=== PATIENT | female | born 1950 | race Caucasian/White ===

== ENCOUNTER 2020-12-07 09:23 | Emergency (ER) | payer MEDICARE ==
[~2020-12-07] VITALS: Ht 162.6 cm; Wt 61.0 kg
[2020-12-07 09:28] VITALS: BP 192/88
--- NOTE | 2020-12-07 10:41 | ED.ADGEN ---
Past Medical History Past Surgical History: Hysterectomy Additional Past Surgical Histo: "BLADDER MESH" Smoking Status: Never Smoker Alcohol Use: None Drug Use: Marijuana General Adult EDM: Chief Complaint: ABSCESS HPI: HPI: Patient is a 70 year old female, accompanied by her , who presents to the emergency department with concerns of a hole in her perineum for the last 2 weeks. She denies any bleeding or discharge from the site. Patient reports when the symptoms began she was suffering from some constipation and having to strain with bowel movements. She denies any blood in her stool or her urine. She denies any abnormal vaginal discharge, vaginal bleeding, or vaginal odor. Patient denies any dysuria, fever, abdominal pain, nausea, vomiting, or diarrhea. Patient states that her visualized the hole and knows exactly where it is, she currently denies any pain. Review of Systems: Review of Systems: Complete ROS is negative unless otherwise noted in HPI. Allergies: Allergies: Allergies Coded Allergies Type Severity Reaction Last Updated Verified No Known Drug Allergies 12/07/20 No Physical Exam: PE: See Above Constitutional: Well developed, well nourished, no acute distress, non-toxic appearance. [] HENT: Normocephalic, atraumatic, bilateral external ears normal, nose normal. [] Eyes: PERRLA, EOMI, conjunctiva normal, no discharge. [] Neck: Normal range of motion, no stridor. [] Cardiovascular:Heart rate regular rhythm Lungs & Thorax: Respirations even and unlabored, no retractions, no respiratory distress Rectal Exam: Normal tone, No mass, Positive control, visible external hemorrhoid at 12:00 that is not thrombosed, no palpable internal hemorrhoid Stool: Brown Guaiac: Deferred Skin: Warm, dry, no erythema, no rash. [] Extremities: No cyanosis, ROM intact, no edema. [] Neurologic: Alert and oriented X 3, no focal deficits noted. [] Psychologic: Affect normal, judgement normal, mood normal. [] Current Patient Data: Vital Signs: Vital Signs Date Time Temp Pulse Resp B/P (MAP) Pulse Ox O2 Delivery O2 Flow Rate FiO2 12/07/20 09:28 97.7 102 12 192/88 97 Room Air 97.7 EKG: EKG: [] Heart Score: C/O Chest Pain: No Radiology/Procedures: Radiology/Procedures: [] Course & Med Decision Making: Course & Med Decision Making Pertinent Labs and Imaging studies reviewed. (See chart for details) [] Dragon Disclaimer: Dragon Disclaimer: This electronic medical record was generated, in whole or in part, using a voice recognition dictation system. Departure Departure Impression: Primary Impression: Hemorrhoidal skin tag Disposition: HOME / SELF CARE / HOMELESS Condition: STABLE Referrals: WILLOW YOON MD (PCP) Patient Instructions: Hemorrhoids, [id number] Additional Instructions: Use the [place] stool chart to navigate your constipation. If your stools are harder I recommend that you take a capful of MiraLAX in 8 ounces of water or juice once a day to help soften your stools. If your stools are loose you are lacking fiber and I recommend that she add fiber into your diet. You may also take [id number] stool softener such as docusate, I do not recommend laxatives. I recommend sitz baths as discussed you may also try applying Tucks medicated pads or witch aj pads for comfort. Follow-up with your primary care doctor next week, return to the ER if symptoms worsen or fever develops. Attending Signature Attending Signature I have reviewed the PA/ASSOCIATE [employer]'s note and plan of care. I was available for consultation as needed during the patient's visit in the emergency department. I agree with the clinical impression, plan, and disposition. SLOANE MARISCAL APRN Dec 07, 2020 10:41 DONI DRISCOLL DO Dec 07, 2020 11:00
== END 2020-12-07 10:51 | disposition home or self-care (01) ==
LOC: ER 09:23
DX: K64.4 Residual hemorrhoidal skin tags (principal); Z90.710 Acquired absence of both cervix and uterus
CPT/HCPCS: 99282